=== PATIENT | female | born 1965 | race Two or more races ===

== ENCOUNTER 2020-04-25 21:06 | Emergency (ER) | payer MEDICAID, OTHER, SELFPAY ==
[~2020-04-25] VITALS: Ht 167.6 cm; Wt 94.0 kg
[2020-04-25 22:00] LABS: BASOPHILS % (AUTO) 1 % (0-1); EOSINOPHILS % (AUTO) 2 % (1-7); LYMPHOCYTES % (AUTO) 42 % (22-44); MEAN CORPUSCULAR HEMOGLOBIN 29.1 pg (27.0-34.8); MEAN CORPUSCULAR HGB CONC 34.4 g/dL (32.4-35.8); MEAN PLATELET VOLUME 9.3 fL (7.4-10.4); MONOCYTES % (AUTO) 9 % (2-9); NEUTROPHILS % (AUTO) 46 % (42-75); PLATELET COUNT 308 x10^3/uL (130-400); RED BLOOD COUNT 4.71 x10^6/uL (3.82-5.3); RED CELL DISTRIBUTION WIDTH 13.1 % (9.6-15.2)
[2020-04-25] MEDS ORDERED: SODIUM CHLORIDE 0.9% 1,000ML IVBOLUS ONE (22:00)
[2020-04-25] MEDS ORDERED: ASPIRIN 81 MG TABLET CHEW PO ONE (22:00)
[2020-04-25] MEDS ORDERED: PLEASE ENTER ALLERGIES MC SCH (22:00)
[2020-04-25 22:01] LABS: MD NO
[2020-04-25] MEDS ORDERED: ASPIRIN 81 MG TABLET CHEW ONE (22:05)
[2020-04-25 22:13] LABS: ALBUMIN 3.6 g/dL (3.4-5.0); ANION GAP 8 mmol/L (5-15); CALCIUM 8.5 mg/dL (8.5-10.1); CHLORIDE 103 mmol/L (98-107)
[2020-04-25 22:19] LABS: ALANINE AMINOTRANSFERASE 61 U/L (12-78); ALKALINE PHOSPHATASE 194 U/L (45-117); BILIRUBIN,TOTAL 0.4 mg/dL (0.2-1.0); CREATININE 1.17 mg/dL (0.55-1.02); TOTAL PROTEIN 7.7 g/dL (6.4-8.2); TROPONIN I < 0.015 ng/mL (0.000-0.045)
[2020-04-25] MEDS ORDERED: INSULIN SINGLE DOSE, ER IVPush ONE (22:30)
--- NOTE | 2020-04-25 23:10 | NUR ---
UA SAMPLE COLLECTED.
[2020-04-25 23:22] LABS: MICROSCOPIC NOT IND
[2020-04-25] MEDS ORDERED: INSULIN SINGLE DOSE, ER ONE (23:50)
[2020-04-26] MEDS ORDERED: KETOROLAC 30 MG/1 ML IVPush ONE
[2020-04-26] MEDS ORDERED: KETOROLAC 30 MG/1 ML ONE (00:31)
[2020-04-26 01:35] LABS: TROPONIN I < 0.015 ng/mL (0.000-0.045)
--- NOTE | 2020-04-26 01:41 | NUR ---
PT RESTING IN BED WITH PT FAMILY AT PT SIDE, PT ON MNITOR WITH PT VSS. PT HAS NO CURRENT WANTS OR NEEDS. PT MEDICATED PER MAR
[2020-04-26 02:10] VITALS: BP 134/77
== END 2020-04-26 02:12 | disposition home or self-care (01) ==
LOC: ED 21:33
DX: R07.89 Other chest pain (principal); E11.65 Type 2 diabetes mellitus with hyperglycemia; R94.31 Abnormal electrocardiogram [ECG] [EKG]; I10 Essential (primary) hypertension
CPT/HCPCS: 36415; 71045; 80053; 81003; 83690; 84484; 85025; 93005; 96361; 96374; 96375; 99285; J1815; J1885; J7030; 82962